=== PATIENT | female | born 1990 | race Caucasian/White ===

== ENCOUNTER 2016-11-01 16:49 | Emergency (ER) | payer BC ==
[~2016-11-01] VITALS: Ht 157.5 cm; Wt 72.7 kg
[2016-11-01 16:51] VITALS: TEMP 98.3
[2016-11-01 17:49] VITALS: BP 116/65; PULSE 74
== END 2016-11-01 17:51 | disposition home or self-care (01) ==
LOC: COL.ER 16:49
DX: O99.352 Diseases of the nervous system complicating pregnancy, second trimester (principal); Z3A.21 21 weeks gestation of pregnancy

== ENCOUNTER 2017-01-06 16:38 | Inpatient (IN) | payer BC ==
[~2017-01-06] VITALS: Ht 157.5 cm; Wt 88.2 kg
[2017-03-14] VITALS (48 sets, daily range): BP systolic 98–147; BP diastolic 40–86; PULSE 60–107; TEMP 97.6–98.9
[2017-03-14] MEDS ORDERED: PRENATAL (07:51)
[2017-03-14 08:14] LABS: BASO % 0.5 % (0.0-2.0); EOS # 0.1 (0.0-0.7); EOS % 0.8 % (0-4.0); GRAN # 5.6 (1.4-6.5); GRAN % 73.5 % (42.2-75.2); LYMPH # 1.2 (1.2-3.4); LYMPH % 16.4 % (20.0-51.0); MEAN CELL VOLUME 92 fl (80.0-100.0); MEAN CORPUSCULAR HGB CONC 33 g/dl (33.0-37.0); MEAN PLATELET VOLUME 10.8 fl (7.4-10.4); MONO # 0.6 (0.1-0.6); MONO % 7.7 % (1.7-9.3); PLATELET COUNT 159 K/mm3 (130-400); REDCELL DISTRIBUTION WIDTH-CV 13.9 % (11.5-14.5)
[2017-03-14 08:16] LABS: HEMATOCRIT 34.1 % (37.0-47.0); HEMOGLOBIN 11.2 g/dl (12.5-16.0); MEAN CORPUSCULAR HEMOGLOBIN 30 pg (27.0-31.0)
[2017-03-15 02:30] VITALS: BP 106/72; PULSE 80; TEMP 98.5
[2017-03-15 06:00] VITALS: BP 88/50; PULSE 78; TEMP 98.5
[2017-03-15 07:48] VITALS: BP 110/58; PULSE 68; TEMP 98.2
[2017-03-15 19:30] VITALS: BP 118/74; PULSE 88; TEMP 97.7
[2017-03-16 07:45] VITALS: BP 114/66; PULSE 73; TEMP 97.9
[2017-03-16] MEDS ORDERED: IBU600 MG PO (10:31)
== END 2017-03-16 13:15 | disposition home or self-care (01) | DRG 775 ==
LOC: LDR 03-11 16:38 → OB 03-14 07:01 → LDR 03-14 11:31 → OB 03-14 20:20
PROVIDERS: Obstetrics & Gynecology
PROC: 10D07Z6 Extraction of Products of Conception, Vacuum, Via Natural or Artificial Opening (ICD-10-PCS; principal; 2017-03-14)
PROC: 0HQ9XZZ Repair Perineum Skin, External Approach (ICD-10-PCS; 2017-03-14)
DX: O48.0 Post-term pregnancy (principal); O34.03 Maternal care for unspecified congenital malformation of uterus, third trimester; Q51.3 Bicornate uterus; O70.0 First degree perineal laceration during delivery; O76 Abnormality in fetal heart rate and rhythm complicating labor and delivery; Z3A.40 40 weeks gestation of pregnancy; Z37.0 Single live birth; Z14.8 Genetic carrier of other disease
CPT/HCPCS: J2590; J7120